=== PATIENT | male | born 2000 | race Caucasian/White ===

== ENCOUNTER 2025-04-12 18:50 | Emergency (ER) | payer OTHER ==
[2025-04-12 19:02] VITALS: TEMP 98.1
--- NOTE | 2025-04-12 19:19 | ED ---
General Adult HPI - General Source: patient, family, RN notes reviewed, old records reviewed Mode of arrival: ambulatory Limitations: no limitations <James Soni - Last Filed: 04/12/25 20:19> - General Source: patient, family, RN notes reviewed, old records reviewed Mode of arrival: ambulatory Limitations: no limitations - History of Present Illness -: days(s) Radiation: non-radiation Severity scale (1-10): 0 Improves with: none Worsens with: none Associated Symptoms: denies other symptoms <Fermin Adams - Last Filed: 04/13/25 13:40> - General Chief complaint: Psychiatric Symptoms Stated complaint: mental health evaluation Time Seen by Provider: 04/12/25 19:03 - History of Present Illness Initial comments: 24-year-old male presenting for evaluation of insomnia, history of bipolar depression and multiple psychiatric admissions. Patient had contacted the psychiatrist who recommended the patient present to the emergency department to receive laboratory testing prior to initiating of medication. He was previously on psychiatric medications but discontinued these about 6 months ago. Patient is denying suicidal or homicidal ideation. No physical complaints. (James Soni) This is a 24-year-old female to ER for psychiatric evaluation, patient has history of bipolar with no recent change in medications denies any new significant life stressors, denies drugs or alcohol (Fermin Adams) - Related Data Previous Rx's Medication Instructions Recorded diazePAM [Valium] 5 mg PO Q8H 3 Days #9 tab 04/12/25 Allergies Allergy/AdvReac Type Severity Reaction Status Date / Time No Known Allergies Allergy Verified 04/12/25 19:02 Review of Systems ROS Other: All systems not noted in ROS Statement are negative. <James Soni - Last Filed: 04/12/25 20:19> ROS Other: All systems not noted in ROS Statement are negative. <Fermin Adams - Last Filed: 04/13/25 13:40> ROS Statement: Those systems with pertinent positive or pertinent negative responses have been documented in the HPI. Past Medical History Additional Past Medical History / Comment(s): broken tib/fib left leg Past Psychological History: Bipolar, Depression Smoking Status: Light tobacco smoker Past Alcohol Use History: None Reported Past Drug Use History: None Reported <James Soni - Last Filed: 04/12/25 20:19> General Exam Limitations: no limitations General appearance: alert, in no apparent distress Head exam: Present: atraumatic, normocephalic Eye exam: Present: normal appearance, PERRL ENT exam: Present: normal exam Neck exam: Present: normal inspection. Absent: tenderness, meningismus Respiratory exam: Present: normal lung sounds bilaterally. Absent: respiratory distress, wheezes Cardiovascular Exam: Present: regular rate, normal rhythm GI/Abdominal exam: Present: soft. Absent: distended, tenderness Extremities exam: Present: normal inspection, normal capillary refill Neurological exam: Present: alert, oriented X3, CN II-XII intact, normal gait. Absent: motor sensory deficit Psychiatric exam: Present: depressed, flat affect Skin exam: Present: warm, dry, intact <James Soni - Last Filed: 04/12/25 20:19> General appearance: alert, in no apparent distress Head exam: Present: atraumatic, normocephalic, normal inspection Eye exam: Present: normal appearance, PERRL, EOMI. Absent: scleral icterus, conjunctival injection, periorbital swelling ENT exam: Present: normal exam, mucous membranes moist Neck exam: Present: normal inspection. Absent: tenderness, meningismus, lymphadenopathy Respiratory exam: Present: normal lung sounds bilaterally. Absent: respiratory distress, wheezes, rales, rhonchi, stridor Cardiovascular Exam: Present: regular rate, normal rhythm, normal heart sounds. Absent: systolic murmur, diastolic murmur, rubs, gallop, clicks GI/Abdominal exam: Present: soft, normal bowel sounds. Absent: distended, tenderness, guarding, rebound, rigid Extremities exam: Present: normal inspection, full ROM, normal capillary refill. Absent: tenderness, pedal edema, joint swelling, calf tenderness Back exam: Present: normal inspection Neurological exam: Present: alert, oriented X3, CN II-XII intact Psychiatric exam: Present: normal affect, normal mood Skin exam: Present: warm, dry, intact, normal color. Absent: rash <Fermin Adams - Last Filed: 04/13/25 13:40> Course <Fermin Adams - Last Filed: 04/13/25 13:40> Vital Signs 04/12/25 04/12/25 18:57 23:15 Temperature 98.1 F Pulse Rate 97 86 Respiratory 18 17 Rate Blood Pressure 134/90 129/86 O2 Sat by Pulse 97 97 Oximetry - Reevaluation(s) Reevaluation #1: Medical records reviewed (Fermin Adams) Reevaluation #2: Medically cleared for psychiatric evaluation (Fermin Adams) Medical Decision Making - Lab Data Result diagrams: 04/12/25 19:37 <James Soni - Last Filed: 04/12/25 20:19> - Lab Data Result diagrams: 04/12/25 19:37 04/12/25 19:37 <Fermin Adams - Last Filed: 04/13/25 13:40> - Medical Decision Making Was pt. sent in by a medical professional or institution (, VIC, INBOUND CALL CENTER AGENT, urgent care, hospital, or skilled nursing...) When possible be specific @ -No Did you speak to anyone other than the patient for history (EMS, parent, family, police, friend...)? What history was obtained from this source @ -No Did you review nursing and triage notes (agree or disagree)? Why? @ -I reviewed and agree with nursing and triage notes Were old charts reviewed (outside hosp., previous admission, EMS record, old EKG, old radiological studies, urgent care reports/EKG's, skilled nursing records)? Report findings @ -No old charts were reviewed Differential Mental Health Depression, anxiety, bipolar, psychosis, schizophrenia, borderline personality, situational depression, adjustment disorder, behavioral disorder, brain tumor, malingering, substance abuse, encephalopathy, medication reaction, dementia, hypothyroidism, degenerative neurologic disorder, lupus.... This is not meant to be all-inclusive list EKG interpreted by me (3pts min.). @ -As above X-rays interpreted by me (1pt min.). @ -None done CT interpreted by me (1pt min.). @ -None done U/S interpreted by me (1pt. min.). @ -None done What testing was considered but not performed or refused? (CT, X-rays, U/S, labs)? Why? @ -None What meds were considered but not given or refused? Why? @ -None Did you discuss the management of the patient with other professionals (professionals i.e. , PA, INBOUND CALL CENTER AGENT, lab, RT, psych nurse, drug abuse social worker, hot strip mill supervisor, teacher, bomb squad officer, renal case manager)? Give summary @ -No Was smoking cessation discussed for >3mins.? @ -No Was critical care preformed (if so, how long)? @ -No Were there social determinants of health that impacted care today? How? (Bj elessness, low income, unemployed, alcoholism, drug addiction, transportation, low edu. Level, literacy, decrease access to med. care, skilled nursing, rehab)? @ -No Was there de-escalation of care discussed even if they declined (Discuss DNR or withdrawal of care, Hospice)? DNR status @ -No What co-morbidities impacted this encounter? (DM, HTN, Smoking, COPD, CAD, Cancer, CVA, ARF, Chemo, Hep., AIDS, mental health diagnosis, sleep apnea, morbid obesity)? @ -None Was patient admitted / discharged? Hospital course, mention meds given and route, prescriptions, significant lab abnormalities, going to OR and other pertinent info. @ -Care signed out awaiting EPS evaluation patient medically cleared, at 2030. (James Soni) 24 female was seen eval by psychiatry here in the emergency room, patient is okay for discharge home (Fermin Adams) - Lab Data Lab Results 04/12/25 04/12/25 04/12/25 Range/Units 19:37 19:37 20:18 WBC 11.86 H (4.50-10.00) 10*3/uL RBC 6.30 H (4.40-5.60) 10*6/uL Hgb 19.3 H* (13.0-17.0) g/dL Hct 54.1 H (39.6-50.0) % MCV 85.9 (80.0-97.0) fL MCH 30.6 (27.0-32.0) pg MCHC 35.7 (32.0-37.0) g/dL Plt Count 380 (140-440) 10*3/uL MPV 9.8 (9.5-12.2) fL Immature Gran % (Auto) 0.3 % Neutrophils % 63.2 % Lymphocytes % 25.6 % Monocytes % 9.7 % Eosinophils % 0.8 % Basophils % 0.4 % Immature Gran # 0.03 (0.00-0.04) 10*3/uL Neutrophils # 7.49 (1.80-7.70) 10*3/uL Lymphocytes # 3.04 (0.90-5.00) 10*3/uL Monocytes # 1.15 H (0.20-1.00) 10*3/uL Eosinophils # 0.10 (0.04-0.35) 10*3/uL Basophils # 0.05 (0.00-0.10) 10*3/uL Sodium 140 (137-145) mmol/L Potassium 4.5 (3.5-5.1) mmol/L Chloride 101 (98-107) mmol/L Carbon Dioxide 24 (22-30) mmol/L Anion Gap 15 mmol/L BUN 8 L (9-20) mg/dL Creatinine 0.94 (0.66-1.25) mg/dL Est GFR (CKD-EPI)AfAm >90 (>60 ml/min/1.73 sqM) Est GFR (CKD-EPI)NonAf >90 (>60 ml/min/1.73 sqM) Glucose 108 H (74-99) mg/dL Calcium 10.8 H (8.4-10.2) mg/dL Magnesium 1.8 (1.6-2.3) mg/dL Total Bilirubin 1.0 (0.2-1.3) mg/dL AST 56 (17-59) U/L ALT 100 H (4-49) U/L Alkaline Phosphatase 81 (38-126) U/L Total Protein 8.7 H (6.3-8.2) g/dL Albumin 5.5 H (3.5-5.0) g/dL Urine Opiates Screen Not Detected (NotDetected) Ur Oxycodone Screen Not Detected (NotDetected) Urine Methadone Screen Not Detected (NotDetected) Ur Barbiturates Screen Not Detected (NotDetected) U Tricyclic Antidepress Not Detected (NotDetected) Ur Phencyclidine Scrn Not Detected (NotDetected) Ur Amphetamines Screen Not Detected (NotDetected) U Methamphetamines Scrn Not Detected (NotDetected) U Benzodiazepines Scrn Not Detected (NotDetected) Urine Cocaine Screen Not Detected (NotDetected) U Marijuana (THC) Screen Not Detected (NotDetected) Serum Alcohol <10 mg/dL Disposition <James Soni - Last Filed: 04/12/25 20:19> Is patient prescribed a controlled substance at d/c from ED?: No Time of Disposition: 23:00 <Fermin Adams - Last Filed: 04/13/25 13:40> Clinical Impression: Acute anxiety, Depression, Acute psychosis Disposition: HOME SELF-CARE Condition: Fair Instructions (If sedation given, give patient instructions): Brief Psychotic Disorder (ED) Prescriptions: diazePAM [Valium] 5 mg PO Q8H 3 Days #9 tab Referrals: Tima Segundo DO [Primary Care Provider] - 1-2 days
[2025-04-12 19:53] LABS: Basophils # (A) 0.05 10*3/uL (0.00-0.10); Basophils % (A) 0.4 %; Eosinophils % (A) 0.8 %; HCT 54.1 % (39.6-50.0); Lymphocytes # (A) 3.04 10*3/uL (0.90-5.00); Lymphocytes % (A) 25.6 %; MCH 30.6 pg (27.0-32.0); MCHC 35.7 g/dL (32.0-37.0); MCV 85.9 fL (80.0-97.0); Mean Platelet Volume 9.8 fL (9.5-12.2); Monocytes # (A) 1.15 10*3/uL (0.20-1.00); Monocytes % (A) 9.7 %; Neutrophils # (A) 7.49 10*3/uL (1.80-7.70); Neutrophils % (A) 63.2 %; Platelet Count 380 10*3/uL (140-440); RDW 13.4 % (11.5-14.5); WBC 11.86 10*3/uL (4.50-10.00)
[2025-04-12 20:07] LABS: ALT 100 U/L (4-49); AST 56 U/L (17-59); African American GFR (CKD) >90 (>60 ml/min/1.73 sqM); Albumin 5.5 g/dL (3.5-5.0); Alcohol <10 mg/dL; Alkaline Phosphatase 81 U/L (38-126); Anion Gap 15 mmol/L; Blood Urea Nitrogen 8 mg/dL (9-20); Calcium 10.8 mg/dL (8.4-10.2); Carbon Dioxide 24 mmol/L (22-30); Chloride 101 mmol/L (98-107); Glucose 108 mg/dL (74-99); Magnesium 1.8 mg/dL (1.6-2.3); Non-African American GFR(CKD) >90 (>60 ml/min/1.73 sqM); Potassium 4.5 mmol/L (3.5-5.1); Sodium 140 mmol/L (137-145); Total Protein 8.7 g/dL (6.3-8.2)
[2025-04-12 20:50] LABS: HGB 19.3 g/dL (13.0-17.0)
[2025-04-12 21:17] LABS: Amphetamine Screen,Urine Not Detected (NotDetected); Barbiturate Screen,Urine Not Detected (NotDetected); Benzodiazepines Screen,Urine Not Detected (NotDetected); Cocaine Screen,Urine Not Detected (NotDetected); Methadone Screen, Urine Not Detected (NotDetected); Opiate Screen,Urine Not Detected (NotDetected); Oxycodone Screen, Urine Not Detected (NotDetected); Phencyclidine Screen,Urine Not Detected (NotDetected); Tricyclic Antidepressant,Urine Not Detected (NotDetected); Urn Cannabinoid Scrn Not Detected (NotDetected)
[2025-04-12] MEDS: diazePAM 5 MG TAB PO STA (23:14)
[2025-04-12 23:19] VITALS: BP 129/86; PULSE 86; RESP 17
== END 2025-04-12 23:21 | disposition home or self-care (01) ==
LOC: EC 18:50
DX: F41.9 Anxiety disorder, unspecified (principal); F23 Brief psychotic disorder; F32.A Depression, unspecified
CPT/HCPCS: 36415; 80053; 80306; 80320; 83735; 85025; 99283

== ENCOUNTER 2025-04-19 05:55 | Inpatient (IN) | payer OTHER ==
--- NOTE | 2025-04-19 06:34 | ED ---
Psych HPI - General Chief Complaint: Psychiatric Symptoms Stated Complaint: Psych Time Seen by Provider: 04/19/25 06:07 Source: patient, family, EMS, RN notes reviewed Mode of arrival: EMS Limitations: altered mental status - History of Present Illness Initial Comments: 24-year-old male presents emergency room via EMS with mother for psychiatric evaluation. Information is very limited given by mother in the room as patient was given 10 mg of Versed prior to arrival by EMS this patient was agitated, manic. Patient was recently seen in emergency department evaluated as discharged with Valium secondary to manic episodes, not sleeping and was scheduled to see his physician this week. Patient is currently sleeping from medication Versed given. Patient reportedly was making threats, was agitated with family. - Related Data Home Medications Medication Instructions Recorded Confirmed Fluticasone/Vilanterol [Breo 1 puff INHALATION RT-DAILY 04/19/25 04/19/25 Ellipta 100-25 Mcg Inhalr] diazePAM [Valium] 5 mg PO Q12H PRN 04/19/25 04/19/25 Allergies Allergy/AdvReac Type Severity Reaction Status Date / Time No Known Allergies Allergy Verified 04/19/25 12:26 Review of Systems ROS Statement: Those systems with pertinent positive or pertinent negative responses have been documented in the HPI. ROS Other: All systems not noted in ROS Statement are negative. Past Medical History Additional Past Medical History / Comment(s): broken tib/fib left leg Past Psychological History: Bipolar, Depression Smoking Status: Light tobacco smoker Past Alcohol Use History: None Reported Past Drug Use History: None Reported General Exam Limitations: altered mental status General appearance: alert, in no apparent distress Head exam: Present: atraumatic, normocephalic, normal inspection Eye exam: Present: normal appearance, PERRL, EOMI. Absent: scleral icterus, conjunctival injection, periorbital swelling Pupils: Present: normal accommodation, unequal ENT exam: Present: normal exam, normal oropharynx, mucous membranes moist Neck exam: Present: normal inspection, full ROM. Absent: tenderness, meningismus, lymphadenopathy Respiratory exam: Present: normal lung sounds bilaterally. Absent: respiratory distress, wheezes, rales, rhonchi, stridor Cardiovascular Exam: Present: regular rate, normal rhythm, normal heart sounds. Absent: systolic murmur, diastolic murmur, rubs, gallop, clicks Skin exam: Present: warm, dry, intact, normal color. Absent: rash Course Vital Signs 04/19/25 04/19/25 04/19/25 05:58 07:00 09:00 Temperature 98.3 F Pulse Rate 91 90 89 Respiratory 16 20 Rate Blood Pressure 111/73 104/63 141/73 O2 Sat by Pulse 98 100 95 Oximetry 04/19/25 04/19/25 11:47 13:48 Temperature Pulse Rate 120 H 108 H Respiratory 20 16 Rate Blood Pressure 132/68 132/79 O2 Sat by Pulse 99 98 Oximetry Procedures - Restraint - Face to Face Restraint Occurrence 1 Patient's Immediate Situation: Endangers self safety, Endangers others' safety, Endangers staff safety Patient's Reaction to the Intervention: Uncooperative, Anxious, Combative Patient's Medical & Behavioral Condition: Alert, Manic Need to Continue or Terminate Restraint or Seclusion: Continue Face to Face Eval of Restraint Date: 04/19/25 Face to Face Eval of Restraint Time: 08:46 Medical Decision Making - Medical Decision Making Was pt. sent in by a medical professional or institution (, PA, SENIOR MEDICAL DIRECTOR, urgent care, hospital, or [facility]...) When possible be specific @ -No Did you speak to anyone other than the patient for history (EMS, parent, family, police, friend...)? What history was obtained from this source @ -[Mother providing past medical history Did you review nursing and triage notes (agree or disagree)? Why? @ -I reviewed and agree with nursing and triage notes Were old charts reviewed (outside hosp., previous admission, EMS record, old EKG, old radiological studies, urgent care reports/EKG's, [facility] records)? Report findings @ -No old charts were reviewed Differential Diagnosis (chest pain, altered mental status, abdominal pain women, abdominal pain men, vaginal bleeding, weakness, fever, dyspnea, syncope, headache, dizziness, GI bleed, back pain, seizure, CVA, palpatations, mental health, musculoskeletal)? @ -Differential Mental Health Depression, anxiety, bipolar, psychosis, schizophrenia, borderline personality, situational depression, adjustment disorder, behavioral disorder, brain tumor, malingering, substance abuse, encephalopathy, medication reaction, dementia, hypothyroidism, degenerative neurologic disorder, lupus.... This is not meant to be all-inclusive list EKG interpreted by me (3pts min.). @ -None X-rays interpreted by me (1pt min.). @ -None done CT interpreted by me (1pt min.). @ -None done U/S interpreted by me (1pt. min.). @ -None done What testing was considered but not performed or refused? (CT, X-rays, U/S, labs)? Why? @ -None What meds were considered but not given or refused? Why? @ -None Did you discuss the management of the patient with other professionals (professionals i.e. , PA, SENIOR MEDICAL DIRECTOR, lab, RT, psych nurse, case management social worker, pensions retirement plan specialist, teacher, regulatory compliance officer, embedded case manager)? Give summary @ -[EPS evaluated patient recommended inpatient treatment Was smoking cessation discussed for >3mins.? @ -No Was critical care preformed (if so, how long)? @ -No Were there social determinants of health that impacted care today? How? (Homelessness, low income, unemployed, alcoholism, drug addiction, tra nsportation, low edu. Level, literacy, decrease access to med. care, halfway, rehab)? @ -No Was there de-escalation of care discussed even if they declined (Discuss DNR or withdrawal of care, Hospice)? DNR status @ -No What co-morbidities impacted this encounter? (DM, HTN, Smoking, COPD, CAD, Cancer, CVA, ARF, Chemo, Hep., AIDS, mental health diagnosis, sleep apnea, morbid obesity)? @ -None Was patient admitted / discharged? Hospital course, mention meds given and route, prescriptions, significant lab abnormalities, going to OR and other pertinent info. @ -[Admit to 3 W. Undiagnosed new problem with uncertain prognosis? @ -No Drug Therapy requiring intensive monitoring for toxicity (Heparin, Nitro, Insulin, Cardizem)? @ -No Were any procedures done? @ -No Diagnosis/symptom? @ -Acute psychosis, bipolar manic Acute, or Chronic, or Acute on Chronic? @ -Acute Uncomplicated (without systemic symptoms) or Complicated (systemic symptoms)? @ -Complicated Side effects of treatment? @ -No Exacerbation, Progression, or Severe Exacerbation? @ -No Poses a threat to life or bodily function? How? (Chest pain, [place], [place], pneumonia, PE, COPD, DKA, ARF, appy, cholecystitis, CVA, Diverticulitis, Homicidal, Suicidal, threat to staff... and all critical care pts) @ -No - Lab Data Lab Results 04/19/25 Range/Units 09:15 POC Glucose (mg/dL) 93 (70-110) mg/dL POC Glu Composition Siding Worker ID Arnaldo Nichols Disposition Clinical Impression: Acute psychosis, Bipolar disorder Disposition: TRANSFER TO PSYCH HOSP/UNIT Referrals: None,Stated [Primary Care Provider] - 1-2 days Time of Disposition: 11:48
[2025-04-19 09:17] LABS: Glucose,Whole Blood 93 mg/dL (70-110)
[2025-04-19] MEDS: LORazepam 1 MG/0.5 ML VIAL IM STA (09:18)
[2025-04-19] MEDS: HALOPERIDOL LACTATE 5 MG/ML 1 ML VIAL IM STA (11:40)
[2025-04-19 15:10] LABS: Influenza A Not Detected (Not Detectd); Influenza B Not Detected (Not Detectd); RSV Not Detected (Not Detectd)
[2025-04-19] MEDS ORDERED: ACETAMINOPHEN TAB 325 MG TAB PO PRN (16:47)
[2025-04-19] MEDS ORDERED: MAGNESIUM HYDROXIDE 2,400 MG/30 ML CUP PO PRN (16:47)
[2025-04-19] MEDS ORDERED: IBUPROFEN 600 MG TAB PO PRN (16:47)
[2025-04-19] MEDS: NICOTINE 14MG/24HR PATCH TRANSDERM SCH (17:12)
--- NOTE | 2025-04-20 06:31 | ED ---
Medical Decision Making - Lab Data Lab Results 04/19/25 04/19/25 Range/Units 09:15 14:24 POC Glucose (mg/dL) 93 (70-110) mg/dL POC Glu Gravity Prospecting Operator Helper ID Arnaldo Nichols Influenza Type A (PCR) Not Detected (Not Detectd) Influenza Type B (PCR) Not Detected (Not Detectd) RSV (PCR) Not Detected (Not Detectd) SARS-CoV-2 (PCR) Not Detected (Not Detectd) Disposition Clinical Impression: Acute psychosis, Bipolar disorder Disposition: TRANSFER TO PSYCH HOSP/UNIT Procedures - Restraint - Face to Face Restraint Occurrence 2 Patient's Immediate Situation: Endangers self safety, Endangers others' safety Patient's Reaction to the Intervention: Uncooperative, Aggressive, Combative Patient's Medical & Behavioral Condition: Awake, Alert, Agitated Need to Continue or Terminate Restraint or Seclusion: Continue Face to Face Eval of Restraint Date: 04/19/25 Face to Face Eval of Restraint Time: 12:46
[2025-04-20 10:46] LABS: Eosinophils % (A) 2.5 %; HCT 52.6 % (39.6-50.0); HGB 18.3 g/dL (13.0-17.0); MCH 30.2 pg (27.0-32.0); MCHC 34.8 g/dL (32.0-37.0); MCV 86.8 fL (80.0-97.0); Mean Platelet Volume 10.2 fL (9.5-12.2); Monocytes % (A) 9.7 %; Platelet Count 356 10*3/uL (140-440); RBC 6.06 10*6/uL (4.40-5.60); RDW 13.3 % (11.5-14.5); WBC 7.62 10*3/uL (4.50-10.00)
[2025-04-20 10:47] LABS: Basophils # (A) 0.04 10*3/uL (0.00-0.10); Basophils % (A) 0.5 %; Eosinophils # (A) 0.19 10*3/uL (0.04-0.35); Lymphocytes # (A) 1.45 10*3/uL (0.90-5.00); Monocytes # (A) 0.74 10*3/uL (0.20-1.00); Neutrophils # (A) 5.18 10*3/uL (1.80-7.70)
[2025-04-20 10:53] LABS: ALT 113 U/L (4-49); AST 76 U/L (17-59); African American GFR (CKD) >90 (>60 ml/min/1.73 sqM); Albumin 4.9 g/dL (3.5-5.0); Alkaline Phosphatase 81 U/L (38-126); Anion Gap 12 mmol/L; Blood Urea Nitrogen 14 mg/dL (9-20); Carbon Dioxide 26 mmol/L (22-30); Chloride 103 mmol/L (98-107); Glucose 138 mg/dL (74-99); Non-African American GFR(CKD) >90 (>60 ml/min/1.73 sqM); Potassium 3.6 mmol/L (3.5-5.1); Sodium 141 mmol/L (137-145); Total Protein 7.5 g/dL (6.3-8.2)
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
[2025-04-20 15:14] LABS: Chol/HDL Ratio 2.25 Ratio; LDL Cholesterol,Calculated 62.6 mg/dL (0.0-131.0)
[2025-04-20] MEDS: risperiDONE 1 MG TAB PO SCH (19:58)
[2025-04-20] MEDS: HALOPERIDOL LACTATE 5 MG/ML 1 ML VIAL IM PRN (23:43)
[2025-04-20] MEDS: LORazepam 2 MG/ML INJ IM PRN (23:44)
--- NOTE | 2025-04-21 00:51 | P.MHFACE ---
Face to Face Restrain/Seclus - Evaluation Patient's Immediate Situation: Endangers others' safety, Endangers staff safety, Other (see comment) Patient's Immediate Situation - Comment: He was walking around, into other patient rooms, not allowing for, taking items from others as well as garnering member of the staff. Was placed in physical restraints to administer 5 mg Haldol and 2 mg Ativan. He has remained calm and cooperative since that time, with no further need for physical restraints at this time. Patient's Reaction to the Intervention: Calm, Relaxed Patient's Medical & Behavioral Condition: Awake, Alert, Follows directions Need to Continue or Terminate Restraint or Seclusion: Terminate (Was placed in physical restraint for a brief period of time to administer medication, since he administration of medication he has remained calm and cooperative without need for further restraint at this time.) Face to Face Eval of Restraint Date: 04/21/25 Face to Face Eval of Restraint Time: 00:45
--- NOTE | 2025-04-21 12:09 | P.PN ---
Progress Note - Text Progress Note Date: 04/21/25 Interval History: Patient was seen wandering the hallways with one-to-one and was directable and agreeable to speak with keno writer / runner in the smith. Patient did not take his psychotropic medication last night, requiring as needed medications with restraints for agitation, wandering in and out of other patients rooms, pouring syrup over his head. Patient was ultimately placed on a one-to-one for his behaviors. Patient received as needed Haldol/Ativan this morning for agitation. He exhibited gait instability however he denied any dizziness or lightheadedness. Patient continues to be polite superficially, appearing disoriented. Patient states not taking his Risperdal last night due to fatigue in his legs. He was encouraged to take this medication tonight and he agreed. At this time patient denies any suicidal or homicidal ideations, intent or plan. Patient denies any auditory, visual hallucinations. Mental Status Exam: General Appearance: Patient appears to be stated age is somnolent, directable, and cooperative. Behavior: Patient is calmly standing without any agitated behavior. He remains guarded Speech: Patient's speech is fluent and slowed rate, low volume Mood/Affect: Mood is improving mildly, affect is congruent and constricted. Suicidality/Homicidality: Patient denies having any suicidal or homicidal ideation intent or plan. Perceptions: Patient denies any visual hallucinations and denies any auditory hallucinations Though content/process: Thought process is illogical, disorganization noted with bizarre behaviors displayed overnight Memory and concentration: AOX3, grossly intact for the purposes of this session Judgment and insight: Poor Assessment Bipolar 1 disorder, current episode manic Nicotine dependence Nonadherence to medical treatment Plan: -Patient continues to meet criteria for inpatient psychiatric admission for symptom stabilization and safety. Patient has not signed adult voluntary form and medication consent and was placed in patient's chart. -Medications: Continue Risperdal 1 mg at bedtime for psychosis (patient encouraged to take this medication), start trazodone 50 mg at bedtime for insomnia -When necessary Ativan and Haldol for agitation/aggression. -Labs: TSH/A1c/lipid panel all WNL, LFTs elevated -NRT - nicotine patch -SW on board for discharge planning. Encouraged the patient to participate in milieu. Currently awaiting deferral with consumer attorney and court date.
[2025-04-21] MEDS: traZODone HCL 50 MG TAB PO SCH (19:52)
[2025-04-21] MEDS: LORazepam 1 MG TAB PO PRN (19:53)
[2025-04-21] MEDS: haloperidoL 5 MG TAB PO PRN (19:53)
--- NOTE | 2025-04-22 07:46 | P.PN ---
Progress Note - Text Progress Note Date: 04/21/25 Patient continues to be acutely psychotic and appropriate for evaluation at this time
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
[2025-04-22] MEDS: chlorproMAZINE 25 MG TAB PO STA (13:40)
[2025-04-22] MEDS: DIVALPROEX 500 MG TABLET.DR PO SCH (20:45)
[2025-04-22] MEDS: risperiDONE 1 MG TAB PO SCH (20:45)
[2025-04-22] MEDS: QUEtiapine 100 MG TAB PO PRN (20:45)
[2025-04-23] MEDS ORDERED: chlorproMAZINE 25 MG/ML 2 ML AMP IM PRN (11:15)
--- NOTE | 2025-04-23 11:29 | P.PN ---
Progress Note - Text Progress Note Date: 04/23/25 Interval History: Patient was seen eating breakfast in the smith with one-to-one present. Patient continues to exhibit agitation, requiring several as needed medications including Haldol/Ativan with a one-time dose of Thorazine yesterday. Patient was up pacing the halls at night, antagonizing peer and given safety concerns one-to-one will remain. Patient continues to not be forthcoming with symptoms, denying any adverse effects to the medications. Patient yesterday became agitated trying to find his mom's number despite it being seen in his room. He expressed concerns with his family as he is in the hospital has not seen them however he was reminded that his mom came to visitations the other day. At this time patient denies any suicidal or homicidal ideations, intent or plan. Patient denies any auditory, visual hallucinations and denies any paranoia or delusions. Patient denies any side effects from the medications and has been compliant with meds. Mental Status Exam: General Appearance: Patient appears to be stated age is alert, directable, and cooperative. He is disheveled Behavior: Patient exhibits restlessness, guarded Speech: Patient's speech is brief, fluent and nonpressured. Mood/Affect: Mood is improving mildly, affect is congruent and labile. Suicidality/Homicidality: Patient denies having any suicidal or homicidal ideation intent or plan. Perceptions: Patient denies any visual hallucinations and denies any auditory hallucinations Though content/process: Patient continues to exhibit bizarre behaviors, paranoia, poor impulse control Memory and concentration: AOX3, grossly intact for the purposes of this session Judgment and insight: Poor Assessment Bipolar 1 disorder, current episode manic Nicotine dependence Nonadherence to medical treatment Plan: -Patient continues to meet criteria for inpatient psychiatric admission for symptom stabilization and safety. Patient has not signed adult voluntary form and medication consent and was placed in patient's chart. -Medications: Increase Risperdal to 1 mg daily and 2 mg at bedtime for psychosis, increase Depakote to 750 mg twice daily for mood stabilization, increase trazodone to 100 mg at bedtime for insomnia -When necessary Thorazine and Ativan for agitation/aggression. -Labs: Reviewed -NRT - nicotine patch -SW on board for discharge planning. Encouraged the patient to participate in milieu. Patient was somnolent when employment attorney came for deferral today, they will possibly return on Saturday for deferral otherwise court is scheduled for next Saturday
[2025-04-23] MEDS: traZODone HCL 100 MG TAB PO SCH (20:54)
[2025-04-23] MEDS: DIVALPROEX 250 MG TABLET.DR PO SCH (20:54)
[2025-04-24] MEDS: risperiDONE 1 MG TAB PO SCH (11:59)
--- NOTE | 2025-04-24 11:59 | P.PN ---
Progress Note - Text Progress Note Date: 04/24/25 Interval History: Patient was seen wandering the hallways and was directable and agreeable to sp dash with filing writer in the office. Sitter due to erratic behavior. Per nursing staff he only got 3 hours of sleep and did not require emergency medications. Patient notes that he is feeling good today. He notes no racing thoughts or mood swings. When asking how his sleep close he notes okay but when told he only got 3 hours of sleep he was a little bit surprised. He notes that his appetite is good. He denies any problems with overall energy and notes that it is "great". He feels that he is able to concentrate. At this time patient denies any suicidal or homical ideations, intent or plan. Patient denies any auditory, visual hallucinations and denies any paranoia or delusions. Patient denies any side effects from the medications and has been compliant with meds. Mental Status Exam: General Appearance: Patient presented his stated age and presented unshaved in and wearing appropriate close. When walking he was shuffling. Behavior: Patient appeared to be relaxed next and actually smiled when jokes were made. Speech: Patient's speech is fluent and nonpressured. Mood/Affect: Mood is improving mildly, affect is congruent and constricted. Suicidality/Homicidality: Patient denies having any suicidal or homicidal ideation intent or plan. Perceptions: Patient denies any visual hallucinations and denies any auditory hallucinations Though content/process: There is no evidence of any delusional thought content and thought process is linear and goal-directed. Memory and concentration: AOX3, grossly intact for the purposes of this session Judgment and insight: Improving mildly Assessment Bipolar 1 disorder, current episode manic Nicotine dependence Nonadherence to medical treatment Plan: -Patient continues to meet criteria for inpatient psychiatric admission for symptom stabilization and safety. Patient has not signed adult voluntary form and medication consent and was placed in patient's chart. -Medications: Increase Risperdal to 1 mg daily and 2 mg at bedtime for ps ychosis, increase Depakote to 750 mg twice daily for mood stabilization, increase trazodone to 100 mg at bedtime for insomnia -When necessary Thorazine and Ativan for agitation/aggression. -Labs: Reviewed -NRT - nicotine patch -SW on board for discharge planning. Encouraged the patient to participate in milieu. Patient was somnolent when merchant tailor came for deferral today, they will possibly return on Saturday for deferral otherwise court is scheduled for next Saturday
--- NOTE | 2025-04-25 10:53 | P.PN ---
Progress Note - Text Progress Note Date: 04/25/25 Interval History: Patient was seen wandering the hallways and was directable and agreeable to sp dash with manual writer in the office. Patient presented flat. No overnight events reported by nursing staff. Patient denies any suicidal or homicidal thoughts. He notes that he is not having any racing thoughts or mood swings. He denies any ongoing depression or anxiety. He notes that he slept well last night. He denies any problems with energy, appetite or concentration.. At this time patient denies any suicidal or homical ideations, intent or plan. When asking him why he appears somewhat flat he notes that "I tried to be serious". That he mentioned about getting back to the [employer] game. Patient denies any side effects from the medications and has been compliant with meds. Mental Status Exam: General Appearance: The patient presented with stated age and did not appear disheveled. Patient was cooperative but guarded Behavior: Patient was standing relaxed no muscle tension or threatening postures were noticed. Speech: Patient's speech is fluent and nonpressured. Mood/Affect: Mood is improving mildly, affect is congruent and blunted. Suicidality/Homicidality: Patient denies having any suicidal or homicidal ideation intent or plan. Perceptions: Patient denies any visual hallucinations and denies any auditory hallucinations Though content/process: Patient did present slightly bizarre but denied any delusional thoughts or paranoid thinking. Memory and concentration: AOX3, grossly intact for the purposes of this session Judgment and insight: Improving mildly Assessment Bipolar 1 disorder, current episode manic Nicotine dependence Nonadherence to medical treatment Plan: -Patient continues to meet criteria for inpatient psychiatric admission for symptom stabilization and safety. Patient has not signed adult voluntary form and medication consent and was placed in patient's chart. -Medications: Increase Risperdal to 1 mg daily and 2 mg at bedtime for psychosis, increase Depakote to 750 mg twice daily for mood stabilization, increase trazodone to 100 mg at bedtime for insomnia -When necessary Thorazine and Ativan for agitation/aggression. -Labs: Reviewed -NRT - nicotine patch -SW on board for discharge planning. Encouraged the patient to participate in milieu. Patient was somnolent when general doc came for deferral today, they will possibly return on Saturday for deferral otherwise court is scheduled for next Saturday
[2025-04-25] MEDS: MAG HYDROX/AL HYDROX/SIMETH 355 ML BOTTLE PO PRN (12:46)
[2025-04-25] MEDS: chlorproMAZINE 25 MG TAB PO PRN (12:47)
--- NOTE | 2025-04-26 10:45 | P.PN ---
Progress Note - Text Progress Note Date: 04/26/25 Interval History: Patient was seen in bed and was directable and agreeable to speak with magnetic tape typewriter operator in the room. He remains on one-to-one for safety given agitation, did require as needed Thorazine overnight however was able to sleep throughout the night. Patient has been adherent with his psychotropic medications, waiting court for Saturday as he did not defer. Patient continues to be guarded, minimally cooperative and denying all safety concerns. At this time patient denies any suicidal or homicidal ideations, intent or plan. Patient denies any auditory, visual hallucinations and denies any paranoia or delusions. Patient denies any side effects from the medications and has been compliant with meds. Mental Status Exam: General Appearance: Patient appears to be stated age is somnolent and cooperative. Behavior: Patient is calmly laying without any agitated behavior. Speech: Patient's speech is brief but nonpressured. Mood/Affect: Mood is improving mildly, affect is congruent and constricted. Suicidality/Homicidality: Patient denies having any suicidal or homicidal ideation intent or plan. Perceptions: Patient denies any visual hallucinations and denies any auditory hallucinations Though content/process: Superficially, patient did not exhibit any delusional thoughts, paranoia present Memory and concentration: AOX3, grossly intact for the purposes of this session Judgment and insight: Improving mildly Assessment Bipolar 1 disorder, current episode manic Nicotine dependence Nonadherence to medical treatment Plan: -Patient continues to meet criteria for inpatient psychiatric admission for symptom stabilization and safety. Patient has not signed adult voluntary form and medication consent and was placed in patient's chart. -Medications: Increase Risperdal to 1 mg daily and 3 mg at bedtime, continue Depakote 750 mg twice daily for mood stabilization, increase trazodone to 150 mg at bedtime for insomnia -When necessary Thorazine and Ativan for agitation/aggression. -Labs: Reviewed, Depakote level ordered for tomorrow morning -NRT - nicotine patch -SW on board for discharge planning. Encouraged the patient to participate in milieu. Patient did not defer, court scheduled for this Saturday
[2025-04-26] MEDS: NICOTINE GUM (POLACRILEX) 2 MG GUM BUCCAL PRN (16:07)
[2025-04-26] MEDS: traZODone HCL 50 MG TAB PO SCH (20:28)
[2025-04-26] MEDS: risperiDONE 1 MG TAB PO SCH (20:29)
--- NOTE | 2025-04-27 10:37 | P.PN ---
Progress Note - Text Progress Note Date: 04/27/25 Interval History: Patient was seen in bed and was directable and agreeable to speak with sql report writer in the room. Patient's one-to-one was discontinued yesterday and patient thus far appears to be doing well, requiring no as needed medications yesterday and adherent with his psychotropic medications. Discussed with patient the need to get a blood draw for Depakote this morning and he agreed. He reports feeling well but does report fatigue. He has been sleeping better at night. At this time patient denies any suicidal or homicidal ideations, intent or plan. Patient denies any auditory, visual hallucinations and denies any paranoia or delusions. Patient has been compliant with meds. Mental Status Exam: General Appearance: Patient appears to be stated age is somnolent but cooperative. Behavior: Patient is calmly laying without any agitated behavior. Speech: Patient's speech is fluent and nonpressured. Mood/Affect: Mood is improving mildly, affect is congruent and constricted. Suicidality/Homicidality: Patient denies having any suicidal or homicidal ideation intent or plan. Perceptions: Patient denies any visual hallucinations and denies any auditory hallucinations Though content/process: There is no evidence of any delusional thought content and thought process is linear superficially. Memory and concentration: AOX3, grossly intact for the purposes of this session Judgment and insight: Improving mildly Assessment Bipolar 1 disorder, current episode manic Nicotine dependence Nonadherence to medical treatment Plan: -Patient continues to meet criteria for inpatient psychiatric admission for symptom stabilization and safety. Patient has not signed adult voluntary form and medication consent and was placed in patient's chart. -Medications: Continue Risperdal 1 mg daily and 3 mg at bedtime, Depakote 750 mg twice daily for mood stabilization, trazodone 150 mg at bedtime for insomnia -When necessary Thorazine and Ativan for agitation/aggression. -Labs: Depakote level ordered to be completed this morning -NRT - nicotine patch -SW on board for discharge planning. Encouraged the patient to participate in milieu. Court scheduled for tomorrow as patient did not defer
--- NOTE | 2025-04-28 14:45 | P.PN ---
Progress Note - Text Progress Note Date: 04/28/25 Interval History: Patient was seen laying on the floor in the [facility] and was directable and agreea ble to speak with sports writer in the [facility]ith privately. Patient did require as needed medications overnight due to peer wandering into his room and urinating on his bed. Patient was able to remain calm and not agitated during that time. He describes the events as "discombobulated" he was praised for not acting out. He has been adherent with the psychotropic medications, continues to deny all safety concerns. He continues to display some bizarre behaviors including him laying on the cold floor in the [facility]. He does report some lingering sedation during the day from his medications however did state that this is getting better with time. Court was subject to next Saturday given Fire Management Specialist being ill and this was brought up and discussed with patient today. Patient was agreeable with transitioning to [facility] he to attend court on the outpatient side. At this time patient denies any suicidal or homicidal ideations, intent or plan. Patient denies any auditory, visual hallucinations and denies any paranoia or delusions. Spoke to mom Noemy who states she did speak to patient yesterday and he sounded depressed, inquiring if she will allow him back home. She states her and her are pursuing guardianship for patient which was encouraged. She states patient at baseline does have mood swings but is usually redirectable and is overall very caring and nice. Whereas patient usually punches holes in the wall, when he became more agitated and aggressive towards people that was what ultimately concerned her to bring patient in. All questions including diagnosis and treatment plan were discussed with patient's mom and she was agreeable with patient returning home on Saturday after [facility]. Mental Status Exam: General Appearance: Patient appears to be stated age is fatigued but directable, and more cooperative. Behavior: Patient is calmly laying without any agitated behavior. Speech: Patient's speech is fluent and nonpressured. He has low volume, brief Mood/Affect: Mood is improving mildly, affect is congruent and constricted. Suicidality/Homicidality: Patient denies having any suicidal or homicidal ideation intent or plan. Perceptions: Patient denies any visual hallucinations and denies any auditory hallucinations Though content/process: There is evidence of bizarre behaviors however patient is less disorganized and more linear superficially Memory and concentration: AOX3, grossly intact for the purposes of this session Judgment and insight: Improving mildly Assessment Bipolar 1 disorder, current episode manic Nicotine dependence Nonadherence to medical treatment Plan: -Patient continues to meet criteria for inpatient psychiatric admission for symptom stabilization and safety. Patient has not signed adult voluntary form and medication consent and was placed in patient's chart. -Medications: Consolidate Risperdal to 5 mg at bedtime, continue Depakote 750 mg twice daily for mood stabilization, decrease trazodone to 100 mg at bedtime for insomnia -When necessary Thorazine and Ativan for agitation/aggression. -Labs: Depakote level returned at 81.8 -NRT - nicotine patch -SW on board for discharge planning. Encouraged the patient to participate in milieu. Court adjourned to 05/07
[2025-04-28] MEDS: risperiDONE 1 MG TAB PO SCH (21:10)
[2025-04-28] MEDS: traZODone HCL 100 MG TAB PO SCH (21:11)
[2025-04-29 09:46] VITALS: BMI 30.9
--- NOTE | 2025-04-29 11:37 | P.PN ---
Progress Note - Text Progress Note Date: 04/29/25 Interval History: Patient was seen wandering the hallways and was directable and agreeable to sp dash with song writer in the smith. He appeared disheveled however he stated he showered yesterday for 30 minutes and he was encouraged to do that daily. He continues to be adherent with the psychotropic medications, still agreeable with transitioning to [facility] today and patient even asked questions regarding administering this medication. Patient states speaking to his father yesterday during visitations. He did admit to his parents being supportive however expressed feeling depressed due to his lack of success in life. Patient was encouraged to not compare himself to others and focus on his own successes. At this time patient denies any suicidal or homicidal ideations, intent or plan. Patient denies any auditory, visual hallucinations and denies any paranoia or delusions. Patient denies any side effects from the medications and has been compliant with meds. Mental Status Exam: General Appearance: Patient appears to be stated age is alert, directable, and cooperative. He has poor grooming and hygiene Behavior: Patient is calmly standing without any agitated behavior. Speech: Patient's speech is fluent and slowed rate Mood/Affect: Mood is improving mildly, affect is congruent and constricted but slightly reactive. Suicidality/Homicidality: Patient denies having any suicidal or homicidal ideation intent or plan. Perceptions: Patient denies any visual hallucinations and denies any auditory hallucinations Though content/process: There is no evidence of any delusional thought content and thought process is linear and goal-directed. Memory and concentration: AOX3, grossly intact for the purposes of this session Judgment and insight: Improving mildly Assessment Bipolar 1 disorder, current episode manic Nicotine dependence Nonadherence to medical treatment Plan: -Patient continues to meet criteria for inpatient psychiatric admission for symptom stabilization and safety. Patient has not signed adult voluntary form and medication consent and was placed in patient's chart. -Medications: Risperdal Uzedy 125 mg to be given today, discontinue oral Risperdal 5 mg at bedtime, continue Depakote 750 mg twice daily for mood stabilization, trazodone 100 mg at bedtime for insomnia, start melatonin 6 mg at bedtime for insomnia -When necessary Thorazine and Ativan for agitation/aggression. -Labs: Depakote level returned at 81.8, therapeutic -NRT - nicotine patch -SW on board for discharge planning. Encouraged the patient to participate in milieu. Court was adjourned to 05/07/2025. Anticipate discharge home with parents tomorrow after transitioning to [facility]
[2025-04-29] MEDS: risperiDONE 125 MG/0.35 ML SYR (NO COST) SQ ONE (12:21)
[2025-04-29] MEDS: MELATONIN 3 MG TABLET PO SCH (21:22)
[2025-04-29 22:11] VITALS: BP 133/84; PULSE 111; RESP 16; TEMP 97.5
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
== END 2025-04-30 12:11 | disposition home or self-care (01) | DRG 885 ==
LOC: EC 05:55 → 3MHU 16:45
PROVIDERS: ADMIT Psychiatry & Neurology Psychiatry; ATTEND Psychiatry & Neurology Psychiatry
DX: F31.9 Bipolar disorder, unspecified (principal); F17.200 Nicotine dependence, unspecified, uncomplicated; F23 Brief psychotic disorder; F30.9 Manic episode, unspecified; F41.9 Anxiety disorder, unspecified; G47.00 Insomnia, unspecified; Z56.0 Unemployment, unspecified; Z79.899 Other long term (current) drug therapy; Z81.8 Family history of other mental and behavioral disorders; Z87.820 Personal history of traumatic brain injury; Z91.51 Personal history of suicidal behavior; Z11.52 Encounter for screening for COVID-19
CPT/HCPCS: 36415; 80053; 80061; 80164; 82075; 83036; 84443; 85025; 87636; 96372; 99285

== ENCOUNTER 2025-05-27 15:40 | Emergency (ER) | payer OTHER ==
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
[2025-05-27 16:57] LABS: Barbiturate Screen,Urine Not Detected (NotDetected); Benzodiazepines Screen,Urine Detected (NotDetected); Opiate Screen,Urine Not Detected (NotDetected); Oxycodone Screen, Urine Not Detected (NotDetected); Phencyclidine Screen,Urine Not Detected (NotDetected); Tricyclic Antidepressant,Urine Not Detected (NotDetected); Urn Cannabinoid Scrn Not Detected (NotDetected)
[2025-05-27] MEDS: DIVALPROEX ER 250 MG TAB.ER.24H PO STA (17:44)
[2025-05-27] MEDS: PALIPERIDONE 3 MG TAB.ER.24 PO STA (17:45)
[2025-05-27 18:00] VITALS: BP 149/82; PULSE 98; RESP 18; TEMP 98.3
== END 2025-05-27 17:59 | disposition home or self-care (01) ==
LOC: EC 15:40
DX: F17.200 Nicotine dependence, unspecified, uncomplicated (principal); F31.9 Bipolar disorder, unspecified; Z00.8 Encounter for other general examination; Z91.148 Patient's other noncompliance with medication regimen for other reason
CPT/HCPCS: 80306; 82075; 99285

== ENCOUNTER 2025-05-28 20:49 | Inpatient (IN) | payer OTHER ==
--- NOTE | 2025-05-28 21:22 | ED ---
Psych HPI - General Chief Complaint: Psychiatric Symptoms Stated Complaint: Mental health Time Seen by Provider: 05/28/25 21:11 Source: family, EMS Mode of arrival: EMS - History of Present Illness Initial Comments: 24-year-old male presenting for psychiatric evaluation. Reports history of bipolar 1. Parents are here at petitioning him. He has had emotional high and lows recently, he has had increased aggression. Making comments suggesting suicidal ideation to family. Poor eye contact. Short answers. No hallucinations. - Related Data Previous Rx's Medication Instructions Recorded Divalproex [Depakote] 750 mg PO BID 30 Days #180 tab 04/30/25 Melatonin 6 mg PO HS 30 Days #60 tab 04/30/25 Nicotine 14Mg/24Hr Patch [Habitrol] 1 patch TRANSDERM DAILY patch 04/30/25 Nicotine Gum (Polacrilex) 2 mg BUCCAL Q4HR PRN pieceofgum 04/30/25 [Nicorette] risperiDONE [Uzedy] 125 mg SQ QMONTHLY #1 each 04/30/25 traZODone HCL [Desyrel] 100 mg PO HS 30 Days #30 tab 04/30/25 Allergies Allergy/AdvReac Type Severity Reaction Status Date / Time No Known Allergies Allergy Verified 05/28/25 21:03 Review of Systems ROS Statement: Those systems with pertinent positive or pertinent negative responses have been documented in the HPI. ROS Other: All systems not noted in ROS Statement are negative. Past Medical History Additional Past Medical History / Comment(s): broken tib/fib left leg History of Any Multi-Drug Resistant Organisms: None Reported Past Surgical History: No Surgical Hx Reported Past Psychological History: Bipolar, Depression Smoking Status: Light tobacco smoker Past Alcohol Use History: None Reported Past Drug Use History: None Reported General Exam Limitations: no limitations General appearance: alert, in no apparent distress Head exam: Present: atraumatic, normocephalic, normal inspection Eye exam: Present: normal appearance, EOMI Neck exam: Present: normal inspection. Absent: meningismus Respiratory exam: Absent: respiratory distress Cardiovascular Exam: Present: regular rate Neurological exam: Present: alert, oriented X3 Psychiatric exam: Present: anxious, flat affect Skin exam: Present: normal color Course Vital Signs 05/28/25 20:52 Temperature 99.4 F Pulse Rate 88 Respiratory 18 Rate Blood Pressure 119/78 O2 Sat by Pulse 97 Oximetry Medical Decision Making - Medical Decision Making Was pt. sent in by a medical professional or institution (, [facility], [facility], urgent care, hospital, or fci...) When possible be specific @ -No Did you speak to anyone other than the patient for history (EMS, parent, family, police, friend...)? What history was obtained from this source @ -Father Did you review nursing and triage notes (agree or disagree)? Why? @ -I reviewed and agree with nursing and triage notes Were old charts reviewed (outside hosp., previous admission, EMS record, old EKG, old radiological studies, urgent care reports/EKG's, fci records)? Report findings @ -No old charts were reviewed Differential Diagnosis (chest pain, altered mental status, abdominal pain women, abdominal pain men, vaginal bleeding, weakness, fever, dyspnea, syncope, headache, dizziness, GI bleed, back pain, seizure, CVA, palpatations, mental health, musculoskeletal)? @ -Differential Mental Health Depression, anxiety, bipolar, psychosis, schizophrenia, borderline personality, situational depression, adjustment disorder, behavioral disorder, brain tumor, malingering, substance abuse, encephalopathy, medication reaction, dementia, hypothyroidism, degenerative neurologic disorder, lupus.... This is not meant to be all-inclusive list EKG interpreted by me (3pts min.). @ -As above X-rays interpreted by me (1pt min.). @ -None done CT interpreted by me (1pt min.). @ -None done U/S interpreted by me (1pt. min.). @ -None done What testing was considered but not performed or refused? (CT, X-rays, U/S, labs)? Why? @ -None What meds were considered but not given or refused? Why? @ -None Did you discuss the management of the patient with other professionals (professionals i.e. , [facility]IC, [facility] [facility] [facility], lab, RT, psych nurse, clinical social worker, stamping machine operator, teacher, campus police officer, pillowcase sewer)? Give summary @ -EPS determines that the patient will be admitted Was smoking cessation discussed for >3mins.? @ -No Was critical care preformed (if so, how long)? @ -No Were there social determinants of health that impacted care today? How? (Homelessness, low income, unemployed, alcoholism, drug addiction, transportation, low edu. Level, literacy, decrease access to med. care, [facility], rehab)? @ -No Was there de-escalation of care discussed even if they declined (Discuss DNR or withdrawal of care, Hospice)? DNR status @ -No What co-morbidities impacted this encounter? (DM, HTN, Smoking, COPD, CAD, Cancer, CVA, ARF, Chemo, Hep., AIDS, mental health diagnosis, sleep apnea, morbid obesity)? @ -None Was patient admitted / discharged? Hospital course, mention meds given and route, prescriptions, significant lab abnormalities, going to OR and other pertinent info. @ -24-year-old male with history of bipolar 1 presenting for mental health evaluation. Father concerned with suicidal ideation. Patient is medically cleared. EPS determines the patient meets criteria for inpatient management. My attending is Dr. Sherman Undiagnosed new problem with uncertain prognosis? @ -No Drug Therapy requiring intensive monitoring for toxicity (Heparin, Nitro, Insulin, Cardizem)? @ -No Were any procedures done? @ -No Diagnosis/symptom? @ -Suicidal ideation Acute, or Chronic, or Acute on Chronic? @ -Acute Uncomplicated (without systemic symptoms) or Complicated (systemic symptoms)? @ -Complicated Side effects of treatment? @ -No Exacerbation, Progression, or Severe Exacerbation? @ -No Poses a threat to life or bodily function? How? (Chest pain, [place], [place], pneumonia, PE, COPD, DKA, ARF, appy, cholecystitis, CVA, Diverticulitis, Homicidal, Suicidal, threat to staff... and all critical care pts) @ -Yes Diagnosis/symptom? @Bipolar 1 Acute, or Chronic, or Acute on Chronic? @Acute on chronic Uncomplicated (without systemic symptoms) or Complicated (systemic symptoms)? @Complicated Side effects of treatment? @None Exacerbation, Progression, or Severe Exacerbation] @No Poses a threat to life or bodily function? @Yes - Lab Data Lab Results 05/28/25 05/28/25 Range/Units 21:50 21:51 Urine Opiates Screen Not Detected (NotDetected) Ur Oxycodone Screen Not Detected (NotDetected) Urine Methadone Screen Not Detected (NotDetected) Ur Barbiturates Screen Not Detected (NotDetected) U Tricyclic Antidepress Not Detected (NotDetected) Ur Phencyclidine Scrn Not Detected (NotDetected) Ur Amphetamines Screen Not Detected (NotDetected) U Methamphetamines Scrn Not Detected (NotDetected) U Benzodiazepines Scrn Detected H (NotDetected) Urine Cocaine Screen Not Detected (NotDetected) U Marijuana (THC) Screen Not Detected (NotDetected) Influenza Type A (PCR) Not Detected (Not Detectd) Influenza Type B (PCR) Not Detected (Not Detectd) RSV (PCR) Not Detected (Not Detectd) SARS-CoV-2 (PCR) Not Detected (Not Detectd) Disposition Clinical Impression: Bipolar I disorder with batsheva, Noncompliance with medication regimen, Nonadherence to medical treatment, Suicidal ideation Disposition: ADMITTED IP TO THIS HOSP Condition: Fair Referrals: Tima Segundo DO [Primary Care Provider] - 1-2 days Time of Disposition: 22:39
[2025-05-28 22:23] LABS: Barbiturate Screen,Urine Not Detected (NotDetected); Benzodiazepines Screen,Urine Detected (NotDetected); Opiate Screen,Urine Not Detected (NotDetected); Oxycodone Screen, Urine Not Detected (NotDetected); Phencyclidine Screen,Urine Not Detected (NotDetected); Tricyclic Antidepressant,Urine Not Detected (NotDetected); Urn Cannabinoid Scrn Not Detected (NotDetected)
[2025-05-28 22:32] LABS: RSV Not Detected (Not Detectd)
[2025-05-29] MEDS ORDERED: MAG HYDROX/AL HYDROX/SIMETH 355 ML BOTTLE PO PRN (00:43)
[2025-05-29] MEDS ORDERED: IBUPROFEN 600 MG TAB PO PRN (00:43)
[2025-05-29] MEDS ORDERED: MAGNESIUM HYDROXIDE 2,400 MG/30 ML CUP PO PRN (00:43)
[2025-05-29] MEDS ORDERED: ACETAMINOPHEN TAB 325 MG TAB PO PRN (00:43)
[2025-05-29] MEDS: LORazepam 1 MG TAB PO PRN (03:15)
[2025-05-29] MEDS: ZIPRASIDONE 20 MG VIAL IM STA (03:29)
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
[2025-05-29] MEDS: DIVALPROEX 250 MG TABLET.DR PO SCH (14:24)
[2025-05-29] MEDS: NICOTINE GUM (POLACRILEX) 2 MG GUM BUCCAL PRN (16:42)
[2025-05-29] MEDS: risperiDONE 1 MG TAB PO SCH (21:06)
[2025-05-30 08:12] LABS: Basophils # (A) 0.05 10*3/uL (0.00-0.10); Basophils % (A) 0.5 %; Eosinophils # (A) 0.17 10*3/uL (0.04-0.35); Eosinophils % (A) 1.6 %; HCT 50.5 % (39.6-50.0); HGB 17.6 g/dL (13.0-17.0); Lymphocytes # (A) 2.54 10*3/uL (0.90-5.00); Lymphocytes % (A) 24.0 %; MCH 30.2 pg (27.0-32.0); MCHC 34.9 g/dL (32.0-37.0); MCV 86.8 fL (80.0-97.0); Monocytes # (A) 1.30 10*3/uL (0.20-1.00); Monocytes % (A) 12.3 %; Neutrophils # (A) 6.51 10*3/uL (1.80-7.70); Neutrophils % (A) 61.4 %; Platelet Count 289 10*3/uL (140-440); RBC 5.82 10*6/uL (4.40-5.60); RDW 13.1 % (11.5-14.5); WBC 10.59 10*3/uL (4.50-10.00)
[2025-05-30 08:27] LABS: ALT 29 U/L (4-49); AST 30 U/L (17-59); African American GFR (CKD) >90 (>60 ml/min/1.73 sqM); Albumin 5.0 g/dL (3.5-5.0); Alkaline Phosphatase 74 U/L (38-126); Anion Gap 14 mmol/L; Blood Urea Nitrogen 15 mg/dL (9-20); Calcium 10.0 mg/dL (8.4-10.2); Carbon Dioxide 23 mmol/L (22-30); Chloride 104 mmol/L (98-107); Glucose 96 mg/dL (74-99); Non-African American GFR(CKD) >90 (>60 ml/min/1.73 sqM); Potassium 4.3 mmol/L (3.5-5.1); Sodium 141 mmol/L (137-145); Total Protein 7.8 g/dL (6.3-8.2)
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
[2025-05-30 13:38] LABS: Cholesterol 99.00 mg/dL (0.00-200.00); HDL Cholesterol 45.10 mg/dL (40.00-60.00); LDL Cholesterol,Calculated 47.2 mg/dL (0.0-131.0); Triglycerides 33.60 mg/dL (0.00-149.00); VLDL Calculation 6.72 mg/dL (5.00-40.00)
[2025-05-30] MEDS: DIVALPROEX 500 MG TABLET.DR PO SCH (20:53)
[2025-05-31] MEDS: DIVALPROEX 250 MG TABLET.DR PO SCH (11:45)
--- NOTE | 2025-05-31 12:12 | P.PN ---
Progress Note - Text Progress Note Date: 05/31/25 Interval History: Patient was seen in his room and was directable and agreeable to speak with wr iter in the his room. He displayed pill-rolling tremor to which he states has been going on since he has been on this medication. He was not aware as to what brought him to the hospital in the first place, states that things at home have been well. Patient was polite to medical technical writer, did not appear internally preoccupied however he did get as needed Haldol/Ativan yesterday. He has been adherent with his medications. At this time patient denies any suicidal or homicidal ideations, intent or plan. Patient denies any auditory, visual hallucinations and denies any paranoia or delusions. Patient denies any side effects from the medications and has been compliant with meds. Mental Status Exam: General Appearance: Patient appears to be stated age is alert, directable, and cooperative. He has disheveled appearance Behavior: Patient is calmly seated without any agitated behavior. Pill-rolling tremor was evident the patient did display some psychomotor restlessness Speech: Patient's speech is fluent and nonpressured. Mood/Affect: Mood is improving mildly, affect is congruent and constricted. Suicidality/Homicidality: Patient denies having any suicidal or homicidal ideation intent or plan. Perceptions: Patient denies any visual hallucinations and denies any auditory hallucinations Though content/process: There is no evidence of any overt delusional thought content and thought process is linear superficially. Memory and concentration: AOX3, grossly intact for the purposes of this session Judgment and insight: Improving mildly Assessment Bipolar 1 disorder, current episode manic Nicotine dependence Plan: -Patient continues to meet criteria for inpatient psychiatric admission for symptom stabilization and safety. Patient has not signed adult voluntary form and medication consent and was placed in patient's chart. Patient is currently on an AURELIANO that expires on 11/03/2025 -Medications: Increase Depakote to 750 mg twice daily for mood stabilization, discontinue Risperdal and start Invega 6 mg at bedtime for psychosis, ultimate plan is to transition to Invega Sustenna as patient's insurance does not cover Risperdal uzedy -When necessary Ativan and Haldol for agitation/aggression. -Labs: Reviewed -NRT - nicotine patch -SW on board for discharge planning. Encouraged the patient to participate in milieu.
[2025-05-31] MEDS: BENZTROPINE MESYLATE 0.5 MG TAB PO SCH (12:16)
[2025-05-31] MEDS: PALIPERIDONE 6 MG TAB.ER.24 PO SCH (21:52)
--- NOTE | 2025-06-01 12:02 | P.PN ---
Progress Note - Text Progress Note Date: 06/01/25 Interval History: Patient was seen wandering the hallways and was directable and agreeable to sp eak with telegraphic typewriter repairer in the room. Patient did display some inappropriate laughing, was more reactive however. He jokes that his father is 100 years old and he just realized this. Patient did display some disorganization in his thoughts as he said that his father was really 60 years old. Patient did display some bizarre behaviors yesterday on the unit, laying in the bed that was located in one of his peers rooms, receiving as needed Haldol/Ativan. Patient did display tremors of bilateral upper and lower extremities, AIMS was negative and patient did not have any rigidity upon examination. At this time patient denies any suicidal or homicidal ideations, intent or plan. Patient denies any auditory, visual hallucinations and denies any paranoia or delusions. Patient has been compliant with meds. Mental Status Exam: General Appearance: Patient appears to be stated age is alert, directable, and cooperative. Behavior: Patient is calmly seated without any agitated behavior. Patient did display some psychomotor restlessness, tremors noted in bilateral upper and lower extremities Speech: Patient's speech is fluent and nonpressured. Mood/Affect: Mood is improving mildly, affect is congruent and constricted. Suicidality/Homicidality: Patient denies having any suicidal or homicidal ideation intent or plan. Perceptions: Patient denies any visual hallucinations and denies any auditory hallucinations over he did display some internal preoccupation at times Though content/process: There is evidence of disorganization in thoughts with bizarre behavior Memory and concentration: AOX3, grossly intact for the purposes of this session Judgment and insight: Improving mildly Assessment 1 disorder, current episode manic Nicotine dependence Plan: -Patient continues to meet criteria for inpatient psychiatric admission for symptom stabilization and safety. Patient has not signed adult voluntary form and medication consent and was placed in patient's chart. Patient is on an AURELIANO that expires on 11/03/2025 -Medications: Increase Cogentin to 1 mg twice daily for EPS, continue Depakote 750 mg twice daily for mood stabilization, Invega 6 mg at bedtime for psychosis. Ultimate goal is to transition to MCNAIR however will determine from insurance company which Linda they cover prior to this transition -When necessary Ativan and Haldol for agitation/aggression. -Labs: Reviewed -NRT - nicotine patch -SW on board for discharge planning. Encouraged the patient to participate in milieu.
[2025-06-01] MEDS: BENZTROPINE MESYLATE 0.5 MG TAB PO ONE (13:15)
[2025-06-01] MEDS: BENZTROPINE MESYLATE 1 MG TAB PO SCH (20:27)
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
--- NOTE | 2025-06-03 11:42 | P.PN ---
Progress Note - Text Progress Note Date: 06/03/25 Interval History: Patient was seen wandering the hallways and was directable and agreeable to sp [place] with commercial loan underwriter in his room. Patient was reactive today, asked commercial loan underwriter questions about how they are doing. He did not receive any as needed medications yesterday, has been compliant with meds with improvement in his tremors. He continues to sleep poor at night, pacing the the halls however patient's mother states that this is chronic in nature. At this time patient denies any suicidal or homicidal ideations, intent or plan. Patient denies any auditory, visual hallucinations and denies any paranoia or delusions. Patient denies any side effects from the medications and has been compliant with meds. Mental Status Exam: General Appearance: Patient appears to be stated age is alert, directable, and cooperative. Behavior: Patient is calmly seated without any agitated behavior. There is kamran dence of psychomotor restlessness, tremors have lessened Speech: Patient's speech is fluent and nonpressured. Mood/Affect: Mood is improving mildly, affect is congruent and reactive. Suicidality/Homicidality: Patient denies having any suicidal or homicidal ideation intent or plan. Perceptions: Patient denies any visual hallucinations and denies any auditory hallucinations Though content/process: There is no evidence of any delusional thought content and thought process is linear and goal-directed superficially. Memory and concentration: AOX3, grossly intact for the purposes of this session Judgment and insight: Historically poor however improving mildly Assessment Bipolar 1 disorder, current episode manic Nicotine dependence Plan: -Patient continues to meet criteria for inpatient psychiatric admission for symptom stabilization and safety. Patient has not signed adult voluntary form and medication consent and was placed in patient's chart. Patient on an AURELIANO that expires on 11/03/2025 -Medications: Patient to receive Risperdal Uzedy 125 mg subcutaneous today, discontinue oral Risperdal and continue Benadryl 50 mg at bedtime for insomnia/EPS, Cogentin 1 mg twice daily for EPS, Depakote 750 mg twice daily for mood stabilization -When necessary Ativan and Haldol for agitation/aggression. -Labs: Reviewed, Depakote level ordered for tomorrow morning -NRT - nicotine patch -SW on board for discharge planning. Encouraged the patient to participate in milieu. Anticipate discharge home with parents tomorrow
[2025-06-03] MEDS: risperiDONE 125 MG/0.35 ML SYR (NO COST) SQ ONE (13:03)
--- NOTE | 2025-06-04 11:46 | P.PN ---
Progress Note - Text Progress Note Date: 06/04/25 Interval History: Patient was seen wandering the hallways and was directable and agreeable to sp dash with documentation writer in the room. Patient reportedly had contacted his mother yesterday expressing delusional statements of his grandmother being with him who has since , more agitated and expressing paranoia of someone trying to kill him. Patient was redirectable at that time, required no as needed medications. Spoke to patient's mother who expressed concerns with patient's poor sleep with delusions and all questions were addressed at this time. She felt as though the injection last time wore off sooner than 4 weeks and was in agreement with decreasing the frequency of this. Patient has not displayed any agitation during this admission, has been cooperative and adherent with his medications. He received MCNAIR yesterday and is tolerating this well. He continues to be reactive to documentation writer. He did demonstrate some bilateral upper and lower extremity rigidity with tremors also evident. Patient does report some blurry vision and dry mouth he was encouraged to drink more water. He did report paranoia related to being in this environment. At this time patient denies any suicidal or homicidal ideations, intent or plan. Patient denies any auditory, visual hallucinations and denies any delusions. Patient has been compliant with meds. Mental Status Exam: General Appearance: Patient appears to be stated age is alert, directable, and cooperative. Behavior: Patient is calmly seated without any agitated behavior. Some rigidity noted on upper and lower extremities with tremors also evident Speech: Patient's speech is fluent and nonpressured. Mood/Affect: Mood is improving mildly, affect is congruent and more reactive. Suicidality/Homicidality: Patient denies having any suicidal or homicidal ideation intent or plan. Perceptions: Patient denies any visual hallucinations and denies any auditory hallucinations Though content/process: There is evidence of paranoia Memory and concentration: AOX3, grossly intact for the purposes of this session Judgment and insight: Historically poor however improving mildly Assessment Bipolar 1 disorder, current episode manic Nicotine dependence Plan: -Patient continues to meet criteria for inpatient psychiatric admission for symp hyacinth stabilization and safety. Patient has not signed adult voluntary form and medication consent and was placed in patient's chart. Patient is on an AURELIANO that expires on 11/03/2025 -Medications: Risperdal Uzedy 125 mg subcutaneous q. 3 weeks, last given on 06/03 and next due on 06/24, discontinue Benadryl and increase Cogentin and consolidate to 3 mg at bedtime for EPS, consolidate Depakote to ER 1500 mg at bedtime for mood stabilization, start propranolol LA 60 mg at bedtime for akathisia -When necessary Ativan and Haldol for agitation/aggression. -Labs: Depakote level returned at 66.6 -NRT - nicotine patch -SW on board for discharge planning. Encouraged the patient to participate in milieu. Anticipate discharge home with parents on Saturday, mom is agreeable with patient returning home with them
[2025-06-04 12:52] VITALS: RESP 16
[2025-06-04] MEDS: BENZTROPINE MESYLATE 1 MG TAB PO SCH (20:04)
[2025-06-04] MEDS: DIVALPROEX ER 500 MG TAB.ER.24H PO SCH (20:05)
[2025-06-04] MEDS: PROPRANOLOL LA 60 MG CAP.SA.24H PO SCH (20:05)
[2025-06-04] MEDS: HALOPERIDOL LACTATE 5 MG/ML 1 ML VIAL IM PRN (20:17)
[2025-06-04] MEDS: diphenhydrAMINE 50 MG/ML 1 ML VIAL IM STA (20:18)
[2025-06-04] MEDS ORDERED: BENZTROPINE MESYLATE 1 MG TAB PO SCH (21:00)
[2025-06-05] MEDS ORDERED: BENZTROPINE MESYLATE 1 MG TAB PO SCH (09:00)
--- NOTE | 2025-06-06 22:12 | P.PN ---
Progress Note - Text Progress Note Date: 06/05/25 Interval History: Patient was seen sleeping on top of the mattress on the floor of his room. He a wakens briefly to answer questions but appears sleepy throughout. He denies any needs or concerns currently. He denies any suicidal or homicidal ideations, intent or plan. Patient denies any auditory, visual hallucinations and denies any delusions. Yesterday he required Haldol 5 mg po x1, Ativan 1 mg po x1 for agitation with minimal benefit. Later that evening he became agitated and required Haldol 5 mg IM x 1 and Benadryl 50 mg IM x 1. He appears drowsy, respirations normal, vital signs stable. Mental Status Exam: General Appearance: Patient appears to be stated age, well-nourished adult male, fair hygiene. Behavior: Patient is sleeping on the mattress on the floor. Speech: Patient's speech is fluent and non-pressured. Mood/Affect: Mood is fine, affect is sleepy Suicidality/Homicidality: Patient denies having any suicidal or homicidal ideation intent or plan. Perceptions: Patient denies any visual hallucinations and denies any auditory hallucinations Though content/process: There is no overt delusional thought content expressed to me on assessment today, he is sleepy, answers questions quickly and returns to sleep Memory and concentration: AOX3, grossly intact for the purposes of this session Judgment and insight: Historically poor however improving mildly Assessment/Plan: -Continue current diagnoses. -Patient continues to meet criteria for inpatient psychiatric admission for symptom stabilization and safety. Patient is on an AURELIANO that expires on 11/03/2025 -Continue medications as currently prescribed. Continue to monitor for side effects and compliance. -When necessary Ativan and Haldol for agitation/aggression. -NRT - nicotine patch -Encouraged the patient to participate in milieu.
--- NOTE | 2025-06-06 22:15 | P.PN ---
Progress Note - Text Progress Note Date: 06/06/25 Interval History: Patient was seen more active on the unit today. On assessment he was found lucille montiel on his mattress on the floor of his room today, is awake and more engaged in assessment but still guarded with minimal responses. He states he likes to sleep with the mattress on the floor because it's more comfortable for him. He denies any needs or concerns currently. He denies any suicidal or homicidal ideations, intent or plan. Patient denies any auditory, visual hallucinations and denies a ny delusions. No agitation reported today, has not required any PRN medications for agitation so far today. Mental Status Exam: General Appearance: Patient appears to be stated age, well-nourished adult male, fair hygiene. Behavior: Patient is laying on the mattress on the floor, calm but guarded, no agitation today. Speech: Patient's speech is fluent and non-pressured. Mood/Affect: Mood is fine, affect is sleepy Suicidality/Homicidality: Patient denies having any suicidal or homicidal ideation intent or plan. Perceptions: Patient denies any visual hallucinations and denies any auditory hallucinations Though content/process: There is no overt delusional thought content expressed to me on assessment today, thought process concrete Memory and concentration: AOX3, grossly intact for the purposes of this session Judgment and insight: Historically poor however improving mildly Assessment/Plan: -Continue current diagnoses. -Patient continues to meet criteria for inpatient psychiatric admission for symptom stabilization and safety. Patient is on an AURELIANO that expires on 11/03/2025 -Continue medications as currently prescribed. Continue to monitor for side effects and compliance. -When necessary Ativan and Haldol for agitation/aggression. -NRT - nicotine patch -Encouraged the patient to participate in milieu.
[2025-06-06 23:22] VITALS: BP 93/69; PULSE 103; TEMP 98.3
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
== END 2025-06-07 14:02 | disposition home or self-care (01) | DRG 885 ==
LOC: EC 20:49 → 3MHU 05-29 00:28
PROVIDERS: ADMIT Psychiatry & Neurology Psychiatry; ATTEND Psychiatry & Neurology Psychiatry
DX: F31.10 Bipolar disorder, current episode manic without psychotic features, unspecified (principal); F22 Delusional disorders; E66.811 Obesity, class 1; R45.851 Suicidal ideations; R45.850 Homicidal ideations; F17.220 Nicotine dependence, chewing tobacco, uncomplicated; F41.9 Anxiety disorder, unspecified; G25.2 Other specified forms of tremor; F17.200 Nicotine dependence, unspecified, uncomplicated; T42.6X6A Underdosing of other antiepileptic and sedative-hypnotic drugs, initial encounter; T43.216A Underdosing of selective serotonin and norepinephrine reuptake inhibitors, initial encounter; Y04.0XXA Assault by unarmed brawl or fight, initial encounter; Z91.198 Patient's noncompliance with other medical treatment and regimen for other reason; Z91.148 Patient's other noncompliance with medication regimen for other reason; Z68.30 Body mass index [BMI] 30.0-30.9, adult; Z79.899 Other long term (current) drug therapy; Z81.8 Family history of other mental and behavioral disorders
CPT/HCPCS: 80053; 80061; 80164; 80306; 82075; 83036; 84439; 84443; 85025; 87636; 99285